=== PATIENT | male | born 2000 ===

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

== ENCOUNTER 2018-02-28 12:49 | Emergency (ER) | payer MEDICAID ==
[2018-02-28 12:49] VITALS: BMI 27.8
[2018-02-28 13:08] VITALS: RESP 20
--- NOTE | 2018-02-28 13:38 | C.PDOC ---
History Of Present Illness 17 year old male is brought to the ED by mother for evaluation of right wrist pain status post punching wood dresser. Denies taking medications for pain. Denies any weakness or numbness. Reports he was seen in the ED for left wrist pain a few months ago. Time Seen by Provider: 02/28/18 13:12 Chief Complaint (Nursing): Upper Extremity Problem/Injury History Per: Patient History/Exam Limitations: no limitations Onset/Duration Of Symptoms: Hrs Current Symptoms Are (Timing): Still Present Quality: "Pain" Additional History Per: Family (mother) Past Medical History Reviewed: Historical Data, Nursing Documentation, Vital Signs Vital Signs: Last Vital Signs Temp 98.5 F 02/28/18 13:05 Pulse 80 02/28/18 13:05 Resp 20 02/28/18 13:05 BP 100/64 02/28/18 13:05 Pulse Ox 98 02/28/18 13:05 - Medical History PMH: Asthma Other Surgeries: Hx of surgeries Family History: States: No Known Family Hx - Social History Hx Alcohol Use: No Hx Substance Use: No - Immunization History Hx Tetanus Toxoid Vaccination: No Hx Influenza Vaccination: No Hx Pneumococcal Vaccination: No Review Of Systems Except As Marked, All Systems Reviewed And Found Negative. Musculoskeletal: Positive for: Hand Pain (right wrist pain) Neurological: Negative for: Weakness, Numbness Physical Exam - Physical Exam Appears: Non-toxic, No Acute Distress Skin: Warm, Dry, No Rash Head: Normacephalic Eye(s): bilateral: Normal Inspection Nose: Normal Oral Mucosa: Moist Neck: Supple Chest: Symmetrical Extremity: No Normal ROM (limited due to pain), Tenderness (mild tenderness to right wrist), Capillary Refill (less than 2 sec to right hand ), No Deformity, Swelling (mild swelling to right wrist) Extremity: Bilateral: Atraumatic, Normal Color And Temperature Pulses: Left Radial: Normal, Right Radial: Normal Neurological/Psych: Oriented x3, Normal Speech, Normal Sensation, Normal Reflexes Gait: Steady ED Course And Treatment O2 Sat by Pulse Oximetry: 98 (RA) Pulse Ox Interpretation: Normal Medical Decision Making Medical Decision Making: Plan - XR right hand Disposition Counseled Patient/Family Regarding: Studies Performed, Diagnosis, Rx Given - Disposition Disposition: HOME/ ROUTINE Disposition Time: 14:18 Condition: STABLE Prescriptions: Ibuprofen [Motrin] 600 mg PO TID #15 tab Instructions: Contusion (DC) Forms: [facility] (Salvadorean), General Discharge Instructions - POA Present On Arrival: None - Clinical Impression Clinical Impression: Contusion of right hand - Scribe Statement The provider has reviewed the documentation as recorded by the Scribe Yesica Cuello All medical record entries made by the Scribe were at my direction and personally dictated by me. I have reviewed the chart and agree that the record accurately reflects my personal performance of the history, physical exam, medical decision making, and the department course for this patient. I have also personally directed, reviewed, and agree with the discharge instructions and disposition.
--- NOTE | 2018-02-28 13:47 | RAD ---
PROCEDURE: Right Hand Radiographs. HISTORY: trauma COMPARISON: Comparison made with prior radiographs of the right hand and right wrist dated 06/02/2017. FINDINGS: BONES: Redemonstrated is a very tiny corticated elliptical shaped density within the soft tissues adjacent to the distal tip of the ulna styloid likely representing old posttraumatic mineralization though tiny sequela of chronic avulsion injury not excluded. JOINTS: Normal. No osteoarthritic changes. SOFT TISSUES: Normal. OTHER FINDINGS: None. IMPRESSION: No evidence of acute displaced fracture nor dislocation.
[2018-02-28 14:34] VITALS: BP 104/67; PULSE 76; TEMP 98.3; O2SAT 97
== END 2018-02-28 14:34 | disposition home or self-care (01) ==
LOC: C.ER 12:49
DX: S60.221A Contusion of right hand, initial encounter (principal); W22.8XXA Striking against or struck by other objects, initial encounter